=== PATIENT | female | born 1995 | race American Indian/Alaskan Native ===

== ENCOUNTER 2020-07-13 12:05 | Emergency (ER) | payer MEDICAID ==
--- NOTE | 2020-07-13 12:59 | Event Note ---
ED Screening Note Date of service: 07/13/20 Time: 12:58 ED Screening Note: Patient complains of lower abdominal pain and cramping x2 days States worsening Denies urinary symptoms Last menstrual cycle 2 weeks ago History of ovarian cysts This initial assessment/diagnostic orders/clinical plan/treatment(s) is/are subject to change based on patients health status, clinical progression and re- assessment by fellow clinical providers in the ED. Further treatment and workup at subsequent clinical providers discretion. Patient/guardian urged not to elope from the ED as their condition may be serious if not clinically assessed and managed. Initial orders include: Labs
[2020-07-13 13:18] LABS: Basophils % (Auto) 0.6 % (0.0-1.8); Eosinophils % (Auto) 0.8 % (0.0-4.3); Hemoglobin 12.8 gm/dl (10.1-14.3); Lymphocytes # (Auto) 1.7 K/mm3 (1.2-5.4); Lymphocytes % (Auto) 42.3 % (13.4-35.0); Mean Corpuscular HGB Conc 34 % (30-34); Mean Corpuscular Volume 84 fl (79-97); Monocytes # (Auto) 0.4 K/mm3 (0.0-0.8); Monocytes % (Auto) 10.4 % (0.0-7.3); Platelet Count 221 K/mm3 (140-440); Red Blood Count 4.54 M/mm3 (3.65-5.03); Red Cell Distribution Width 14.3 % (13.2-15.2)
[2020-07-13 13:41] LABS: Alanine Aminotransferase 7 units/L (7-56); Albumin 4.1 g/dL (3.9-5); Blood Urea Nitrogen 6 mg/dL (7-17); Calcium 8.8 mg/dL (8.4-10.2); Hemolysis Index 11
[2020-07-13 13:43] LABS: BUN/Creatinine Ratio 9
--- NOTE | 2020-07-13 13:56 | Emergency Department Report ---
ED Abdominal Pain HPI - General Chief Complaint: Abdominal Pain Stated Complaint: LOWER ABD PAIN Time Seen by Provider: 07/13/20 12:58 Source: patient Mode of arrival: Ambulatory Limitations: No Limitations - History of Present Illness Initial Comments: 24-year-old female with no significant past history presents to the ER today with complaints of low abdominal pain. She described as aching cramping has been intermittent and nonradiating. She reports slight vaginal odor but denies any vaginal itching, abnormal vaginal bleeding or discharge. She denies any UTI symptoms. She denies any nausea, vomiting or bowel changes. Her last menstrual cycle was about 2 weeks ago. She is not any control. She does admit to recent new sexual partner about 1 month ago with unprotected sexual intercourse. She reports no other symptoms at this time. MD Complaint: abdominal pain -: Gradual, days(s) (2) - Related Data Previous Rx's Medication Instructions Recorded Last Taken Type DOXYCYCLINE Hyclate [Vibramycin 100 mg PO Q12HR #14 capsule 07/13/20 Unknown Rx CAP] Allergies Allergy/AdvReac Type Severity Reaction Status Date / Time No Known Allergies Allergy Unverified 07/13/20 12:58 ED Review of Systems ROS: Stated complaint: LOWER ABD PAIN Other details as noted in HPI Comment: All other systems reviewed and negative Constitutional: denies: chills, fever Eyes: denies: eye pain, eye discharge, vision change ENT: denies: ear pain, throat pain Respiratory: denies: cough, shortness of breath, wheezing Cardiovascular: denies: chest pain, palpitations Gastrointestinal: abdominal pain. denies: nausea, vomiting, diarrhea, constipation, hematemesis, melena, hematochezia Genitourinary: denies: urgency, dysuria, frequency, hematuria, discharge, abnormal menses, dyspareunia Musculoskeletal: denies: as per HPI, joint swelling, arthralgia, myalgia Skin: denies: rash, lesions Neurological: denies: headache, weakness, numbness, paresthesias, confusion, abnormal gait, vertigo Psychiatric: denies: anxiety, depression Hematological/Lymphatic: denies: easy bleeding, easy bruising ED Past Medical Hx - Past Medical History Previous Medical History?: Yes Additional medical history: Ovarian cysts - Surgical History Past Surgical History?: Yes Additional Surgical History: tonsillectomy - Medications Home Medications: Home Medications Medication Instructions Recorded Confirmed Last Taken Type DOXYCYCLINE Hyclate [Vibramycin 100 mg PO Q12HR #14 capsule 07/13/20 Unknown Rx CAP] ED Physical Exam - General Limitations: No Limitations General appearance: alert, in no apparent distress - Head Head exam: Present: atraumatic, normocephalic, normal inspection - Respiratory Respiratory exam: Present: normal lung sounds bilaterally. Absent: respiratory distress - Cardiovascular Cardiovascular Exam: Present: regular rate, normal rhythm, normal heart sounds - GI/Abdominal GI/Abdominal exam: Present: soft. Absent: distended, tenderness, guarding - External exam: Present: normal external exam, other Speculum exam: Present: vaginal discharge (White/yellowish thin discharge malodorous), other (Retained tampon noted in vaginal vault). Absent: vaginal bleeding, foreign body Bi-manual exam: Absent: cervical motion tendernes, adnexal tenderness, adnexal mass, uterine enlargement, uterine tenderness - Neurological Exam Neurological exam: Present: alert, oriented X3, CN II-XII intact, normal gait - Psychiatric Psychiatric exam: Present: normal affect, normal mood - Skin Skin exam: Present: intact ED Course Vital Signs 07/13/20 15:34 Temperature 99.0 F Pulse Rate 56 L Respiratory 16 Rate Blood Pressure 119/74 [Right] O2 Sat by Pulse 99 Oximetry ED Medical Decision Making - Lab Data Result diagrams: 07/13/20 12:28 07/13/20 12:28 - Medical Decision Making 24-year-old female with no significant past history presents to the ER today with complaints of low abdominal pain. She described as aching cramping has been intermittent and nonradiating. She reports slight vaginal odor but denies any vaginal itching, abnormal vaginal bleeding or discharge. She denies any UTI symptoms. She denies any nausea, vomiting or bowel changes. Her last menstrual cycle was about 2 weeks ago. She is not any control. She does admit to recent new sexual partner about 1 month ago with unprotected sexual intercourse. She reports no other symptoms at this time. 1552: Patient currently resting comfortably. She is not in any acute distress. She is well-appearing and nontoxic and appears hydrated. She has a soft nontender abdomen. Her vital signs are stable. Urinalysis negative for UTI and she is not . Pelvic exam showe retained tampon that patient was not aware of. She had no vaginal bleeding, CMT or adnexal tenderness or swelling or mass. Wet prep was negative for trichomonas yeast and bacterial vaginosis. Patient requested prophylactic treatment for gonorrhea and chlamydia. She was given IM Rocephin here in the ER and she will be discharged with doxycycline. Discussed lab results and treatment plan with patient. Patient expressed understanding of instructions and agree with plan. Patient was stable at time of discharge. Critical care attestation.: If time is entered above; I have spent that time in minutes in the direct care of this critically ill patient, excluding procedure time. ED Disposition Clinical Impression: Retained vaginal foreign body, Vaginitis Disposition: TO HOME OR SELFCARE Is pt being admited?: No Does the pt Need Aspirin: No Condition: Stable Instructions: Vaginal Foreign Body, [id number], Vaginitis, [id number], Abdominal Pain (ED) Additional Instructions: Take the doxycycline as prescribed, and to completion. You can take tylenol or motrin from over the counter as needed for pain. Your partner may need to be tested and treated as well. Follow up with your PCP and or OBGYN. Return to ED if worse. Prescriptions: DOXYCYCLINE Hyclate [Vibramycin CAP] 100 mg PO Q12HR #14 capsule Referrals: ROSARIO WIGGINS MD [Staff Physician] - 3-5 Days [facility] [Provider Group] - 3-5 Days Time of Disposition: 15:47
[2020-07-13 14:56] LABS: Bilirubin,Urine NEG (Negative); Blood,Urine NEG (Negative); Color,Urine Yellow (Yellow); Mucus,Urine FEW /HPF; Protein,Urine <15 mg/dL mg/dL (Negative)
[2020-07-13] MEDS ORDERED: LIDOCAINE-MPF (1%) 10 MG/1 ML VIAL 5 ML INFILTRATI ONE (15:23)
[2020-07-13 15:35] VITALS: BP 119/74
== END 2020-07-13 16:22 | disposition home or self-care (01) ==
LOC: ED 12:05
DX: S30.854A Superficial foreign body of vagina and vulva, initial encounter (principal); N76.0 Acute vaginitis; Z98.890 Other specified postprocedural states; Z79.899 Other long term (current) drug therapy; W45.8XXA Other foreign body or object entering through skin, initial encounter; Y93.89 Activity, other specified; Y92.89 Other specified places as the place of occurrence of the external cause; Y99.8 Other external cause status
CPT/HCPCS: 36415; 80053; 81001; 83690; 84703; 85025; 87210; 87591; 96372; 99284; J0696